=== PATIENT | female | born 1975 | race Caucasian/White ===

== ENCOUNTER 2024-07-19 07:48 | Day surgery (SDC) | payer BC ==
[~2024-07-19] VITALS: Ht 177.8 cm; Wt 153.0 kg
[~2024-07-19 07:48] MED LIST: LOSA25 PO
[2024-07-19] MEDS ORDERED: Lactated Ringer's 1,000 ML IV SCH (08:10)
--- NOTE | 2024-07-19 08:46 | NUR ---
Ambulatory in Day SurgeryPre-Op teaching done. Pt verbalizes understanding. History, Chart, Medications and Allergies reviewed before start of procedure.Patient confirms NPO status and agrees with scheduled surgery. Patient States Post-Procedure ride home has been arranged.
[2024-07-19] MEDS ORDERED: Lactated Ringer's 1,000 ML IV ONE (08:54)
[2024-07-19] MEDS ORDERED: propofoL 20 ML IV ONE (09:29)
[2024-07-19] MEDS ORDERED: Midazolam HCl 1MG / ML 2ML Vial ONE (09:29)
--- NOTE | 2024-07-19 09:35 | NUR ---
07/19/24 0935 rPeet Avalos History, Chart, Medications and Allergies reviewed before start of procedure.MONITOR INTACT WITH CONTINUOUS PULSE OXIMETRY, CONTINUOUS END TITAL CO2, AND INTERMITTENT BLOOD PRESSURE.3-LEAD EKG REVIEWED WITH PHYSICIAN PRIOR TO START OF PROCEDURE.O2 VIA POM INTACT THROUGHOUT SEDATION/PROCEDURE.See Anesthesia record.
[2024-07-19] MEDS ORDERED: Glycopyrrolate 0.2 MG/ML 5ML VIAL ONE (09:38)
[2024-07-19] MEDS ORDERED: FentaNYL Citrate 50 MCG/ML 2 ML Injection IV PRN (09:40)
[2024-07-19 10:15] VITALS: BP 131/76
--- NOTE | 2024-07-19 10:36 | NUR ---
Discharge instructions reviewed with patient. Patient verbalizes understanding. Copy given to patient to take home. Patient States Post-Procedure ride home has been arranged. Discharged via wheelchair to private car for ride home.
== END 2024-07-19 10:35 | disposition home or self-care (01) ==
LOC: ORSCMMR 07:48 → ORD 09:00 → ORSCMMR 09:00
PROVIDERS: Internal Medicine Gastroenterology
PROC: 0DBN8ZX Excision of Sigmoid Colon, Via Natural or Artificial Opening Endoscopic, Diagnostic (ICD-10-PCS; principal; 2024-07-19 09:00)
DX: Z12.11 Encounter for screening for malignant neoplasm of colon (principal); Z86.0101 Personal history of adenomatous and serrated colon polyps; K63.5 Polyp of colon; I10 Essential (primary) hypertension; Z68.43 Body mass index [BMI] 50.0-59.9, adult; E66.01 Morbid (severe) obesity due to excess calories; Z79.899 Other long term (current) drug therapy
CPT/HCPCS: 88305; J2250; J2704; J7120